=== PATIENT | female | born 1970 | race Caucasian/White ===

== ENCOUNTER 2016-05-22 12:45 | Emergency (ER) | payer BC ==
[2016-05-22 14:22] LABS: RED BLOOD COUNT 4.81 M/UL (4.00-5.10); WHITE BLOOD COUNT 14.6 K/UL (4.5-11.0)
[2016-05-22 14:40] LABS: BUN/CREATININE RATIO 16 (0-10)
== END 2016-05-22 15:50 | disposition home or self-care (01) ==
LOC: ER1 12:45
PROVIDERS: Physician Assistant Medical
DX: N13.2 Hydronephrosis with renal and ureteral calculous obstruction (principal); I10 Essential (primary) hypertension; Z88.1 Allergy status to other antibiotic agents
CPT/HCPCS: 36415; 80053; 81001; 82150; 83690; 85025; 96372; 96374; 99284; J1885; J2270; J2405